=== PATIENT | female | born 1955 | race Asian ===

== ENCOUNTER → 2019-08-23 | Outpatient (CLI) | payer BC | END | disposition home or self-care (01) | LOC: CFH 08:58 | PROVIDERS: ATTEND Genetic Counselor, MS | DX: Z12.31 Encounter for screening mammogram for malignant neoplasm of breast (principal); Z13.820 Encounter for screening for osteoporosis; N64.89 Other specified disorders of breast; N95.9 Unspecified menopausal and perimenopausal disorder; M81.8 Other osteoporosis without current pathological fracture | CPT/HCPCS: 77063; 77067; 77080 ==